=== PATIENT | female | born 1955 | race African-American/Black ===

== ENCOUNTER 2023-11-28 18:27 | Emergency (ER) | payer OTHER ==
[2023-11-28 18:36] VITALS: BP 124/69; PULSE 81; RESP 18; TEMP 98.6
== END 2023-11-28 22:00 | disposition home or self-care (01) ==
LOC: JER 18:27
DX: R20.2 Paresthesia of skin (principal); R20.0 Anesthesia of skin; M79.10 Myalgia, unspecified site; M25.552 Pain in left hip; M19.90 Unspecified osteoarthritis, unspecified site
CPT/HCPCS: 99283-25

== ENCOUNTER 2024-02-12 04:17 | Day surgery (SDC) | payer OTHER ==
[2024-02-12 09:35] VITALS: TEMP 98.8
[2024-02-12 09:57] VITALS: BP 100/60; PULSE 73; RESP 14
== END 2024-02-12 10:20 | disposition home or self-care (01) ==
LOC: JASU-ENDO 04:17
PROVIDERS: ATTEND Student in an Organized Health Care Education/Training Program
PROC: 0DB68ZX Excision of Stomach, Via Natural or Artificial Opening Endoscopic, Diagnostic (ICD-10-PCS; 2024-02-12)
PROC: 0DB28ZX Excision of Middle Esophagus, Via Natural or Artificial Opening Endoscopic, Diagnostic (ICD-10-PCS; 2024-02-12)
PROC: 0DB38ZX Excision of Lower Esophagus, Via Natural or Artificial Opening Endoscopic, Diagnostic (ICD-10-PCS; 2024-02-12)
PROC: 0DB98ZX Excision of Duodenum, Via Natural or Artificial Opening Endoscopic, Diagnostic (ICD-10-PCS; principal; 2024-02-12 08:45)
DX: K21.00 Gastro-esophageal reflux disease with esophagitis, without bleeding (principal); K29.50 Unspecified chronic gastritis without bleeding
CPT/HCPCS: 88305-TC; 88342-TC

== ENCOUNTER 2024-03-20 17:37 | Observation (INO) | payer OTHER ==
[2024-03-20 17:59] VITALS: BMI 21.3
[2024-03-20 18:49] LABS: EOS % 1.2 % (0-4.5); HEMATOCRIT 32.9 % (32.4-45.2); HEMOGLOBIN 10.8 GM/dL (10.7-15.3); LYMPH % 18.7 % (8-40); MCH 29.3 pg (25.7-33.7); MCHC 32.9 g/dl (32.0-36.0); MEAN CELL VOLUME 89.3 fl (80-96); MEAN PLT VOLUME 9.1 fl (7.5-11.1); MONO % 4.7 % (3.8-10.2); NEUT % 74.4 % (42.8-82.8); PLATELET COUNT 290 10^3/uL (134-434); RBC 3.69 M/mm3 (3.60-5.2); RDW 13.9 % (11.6-15.6); WHITE BLOOD COUNT 6.4 K/mm3 (4.0-10.0)
[2024-03-20 18:59] LABS: INR 1.04 (0.83-1.09); PROTHROMBIN TIME (PATIENT) 11.7 SEC (9.7-13.0)
[2024-03-20 19:02] LABS: ACTIVATED PTT 27.3 SECONDS (25.2-36.5)
[2024-03-20 19:38] LABS: POTASSIUM 4.2 mmol/L (3.5-5.1)
[2024-03-20 19:39] LABS: CALCIUM 9.3 mg/dL (8.5-10.1)
[2024-03-20 19:40] LABS: ALBUMIN 3.8 g/dl (3.4-5.0); BLOOD UREA NITROGEN 12.6 mg/dL (7-18)
[2024-03-20 19:43] LABS: CREATININE 0.7 mg/dL (0.55-1.3)
[2024-03-20 19:44] LABS: BILIRUBIN,TOTAL 0.4 mg/dL (0.2-1)
[2024-03-20 19:45] LABS: TOT PROT 7.7 g/dl (6.4-8.2)
[2024-03-21 01:06] LABS: POTASSIUM 3.7 mmol/L (3.5-5.1)
[2024-03-21 01:08] LABS: CALCIUM 9.3 mg/dL (8.5-10.1)
[2024-03-21 01:09] LABS: ALBUMIN 3.6 g/dl (3.4-5.0); BLOOD UREA NITROGEN 10.2 mg/dL (7-18); MAGNESIUM 1.9 mg/dL (1.8-2.4)
[2024-03-21 01:12] LABS: CREATININE 0.5 mg/dL (0.55-1.3)
[2024-03-21 01:13] LABS: BILIRUBIN,TOTAL 0.4 mg/dL (0.2-1)
[2024-03-21 01:14] LABS: TOT PROT 7.6 g/dl (6.4-8.2)
[2024-03-21 06:56] LABS: HEMATOCRIT 34.8 % (32.4-45.2); HEMOGLOBIN 11.4 GM/dL (10.7-15.3); MCH 29.5 pg (25.7-33.7); MCHC 32.8 g/dl (32.0-36.0); MEAN CELL VOLUME 90.1 fl (80-96); MEAN PLT VOLUME 9.8 fl (7.5-11.1); PLATELET COUNT 311 10^3/uL (134-434); RBC 3.86 M/mm3 (3.60-5.2); RDW 14.1 % (11.6-15.6); WHITE BLOOD COUNT 6.8 K/mm3 (4.0-10.0)
[2024-03-21] MEDS ORDERED: ENOXAPARIN NA (PORCINE) 40 MG/0.4 ML DISP.SYRIN SQ ONE (09:31)
[2024-03-21] MEDS: ENOXAPARIN NA (PORCINE) 40 MG/0.4 ML DISP.SYRIN SQ SCH (09:38)
[2024-03-21 09:43] VITALS: TEMP 98.1
[2024-03-21] MEDS ORDERED: ALBUTEROL SO4 HFA INHALER IH PRN (10:44)
[2024-03-21] MEDS ORDERED: ATENOLOL 50 MG TABLET (FP) ONE (11:15)
[2024-03-21] MEDS ORDERED: PANTOPRAZOLE 40 MG TABLET PO ONE (11:15)
[2024-03-21] MEDS ORDERED: NIFEdipine E.R. 30 MG TABLET PO ONE (11:16)
[2024-03-21] MEDS: ATENOLOL 50 MG TABLET (FP) PO SCH (11:19)
[2024-03-21] MEDS: NIFEdipine E.R. 30 MG TABLET PO SCH (11:19)
[2024-03-21] MEDS: PANTOPRAZOLE 40 MG TABLET PO SCH (11:19)
[2024-03-21] MEDS ORDERED: GABAPENTIN 400 MG CAPSULE ONE (14:57)
[2024-03-21] MEDS: GABAPENTIN 400 MG CAPSULE PO SCH (15:02)
[2024-03-21 17:28] VITALS: BP 135/71; PULSE 81; RESP 18
[2024-03-21] MEDS ORDERED: ATORVASTATIN CA 20 MG TABLET (FP) PO SCH (22:00)
== END 2024-03-21 18:00 | disposition home or self-care (01) ==
LOC: JER 17:37 → JERBED 21:26
PROVIDERS: ADMIT Internal Medicine; ATTEND Internal Medicine
PROC: 3E023GC Introduction of Other Therapeutic Substance into Muscle, Percutaneous Approach (ICD-10-PCS; principal; 2024-03-20)
DX: R00.0 Tachycardia, unspecified (principal); E78.5 Hyperlipidemia, unspecified; M79.7 Fibromyalgia; I50.30 Unspecified diastolic (congestive) heart failure; I09.89 Other specified rheumatic heart diseases; Z88.8 Allergy status to other drugs, medicaments and biological substances
CPT/HCPCS: 36415; 71045-TC-FY; 80053; 83735; 84443; 84484; 85025; 85027; 85610; 85730; 93005; 93010; 93306-TC; 96372; 99285-25; G0378

== ENCOUNTER 2024-04-03 16:15 | Emergency (ER) | payer OTHER ==
[2024-04-03 16:36] VITALS: BP 175/77; PULSE 80; RESP 18; TEMP 98.3; BMI 19.2
== END 2024-04-03 17:30 | disposition home or self-care (01) ==
LOC: JER 16:15
DX: I10 Essential (primary) hypertension (principal); R00.2 Palpitations
CPT/HCPCS: 93005; 93010; 99283-25

== ENCOUNTER 2024-06-07 14:32 | Emergency (ER) | payer OTHER ==
[2024-06-07 14:49] VITALS: BP 185/80; PULSE 83; RESP 16; TEMP 98.5; BMI 23.1
[2024-06-07 15:42] LABS: BASO % 1.1 % (0-2.0); EOS % 1.4 % (0-4.5); HEMATOCRIT 36.4 % (32.4-45.2); HEMOGLOBIN 11.8 GM/dL (10.7-15.3); LYMPH % 26.9 % (8-40); MCHC 32.4 g/dl (32.0-36.0); MEAN CELL VOLUME 89.3 fl (80-96); MEAN PLT VOLUME 9.3 fl (7.5-11.1); MONO % 7.1 % (3.8-10.2); NEUT % 63.5 % (42.8-82.8); PLATELET COUNT 310 10^3/uL (134-434); RBC 4.08 M/mm3 (3.60-5.2); RDW 14.7 % (11.6-15.6)
[2024-06-07 15:50] LABS: INR 0.97 (0.83-1.09); PROTHROMBIN TIME (PATIENT) 11.2 SEC (9.7-13.0)
[2024-06-07 15:53] LABS: ACTIVATED PTT 30.1 SECONDS (25.2-36.5)
[2024-06-07 15:59] LABS: POTASSIUM 3.9 mmol/L (3.5-5.1)
[2024-06-07 16:01] LABS: ALBUMIN 3.9 g/dl (3.4-5.0); CALCIUM 9.6 mg/dL (8.5-10.1)
[2024-06-07 16:02] LABS: BLOOD UREA NITROGEN 13.8 mg/dL (7-18); MAGNESIUM 1.9 mg/dL (1.8-2.4)
[2024-06-07 16:05] LABS: CREATININE 0.6 mg/dL (0.55-1.3)
[2024-06-07 16:06] LABS: BILIRUBIN,TOTAL 0.6 mg/dL (0.2-1); TOT PROT 8.2 g/dl (6.4-8.2)
[2024-06-07 16:10] LABS: N-TERMINAL BNP 126.8 pg/ml (5-125)
== END 2024-06-07 18:53 | disposition home or self-care (01) ==
LOC: JER 14:32
DX: I10 Essential (primary) hypertension (principal); R07.89 Other chest pain; R00.2 Palpitations; R61 Generalized hyperhidrosis
CPT/HCPCS: 36415; 71046-TC-FY; 80053; 83735; 83880; 84484; 85025; 85610; 85730; 93005; 93010; 99285-25

== ENCOUNTER 2024-09-27 16:30 | Emergency (ER) | payer OTHER ==
[2024-09-27 16:37] VITALS: TEMP 98.8; BMI 20.2
[2024-09-27] MEDS ORDERED: ONDANSETRON *ODT* 4 MG TABLET ONE (17:32)
[2024-09-27] MEDS ORDERED: MAG HYDROX/AL HYDROX/SIMETH 30 ML UNIT-DOSE CUP ONE (17:32)
[2024-09-27] MEDS: MAG HYDROX/AL HYDROX/SIMETH 30 ML UNIT-DOSE CUP PO ONE (17:35)
[2024-09-27] MEDS: ONDANSETRON *ODT* 4 MG TABLET SL ONE (17:40)
[2024-09-27 17:58] LABS: ABSOLUTE IMMATURE GRANULOCYTES 0.01 x10^3/uL (0.0-0.031); BASOPHILS # 0.07 x10^3/uL (0.01-0.08); EOSINOPHIL % 2.2 % (0.7-5.8); EOSINOPHILS # 0.09 x10^3/uL (0.04-0.36); HEMATOCRIT 29.6 % (34.1-44.9); MCHC 33.8 g/dl (32.2-35.5); MEAN CELL VOLUME 87.1 fl (79.4-94.8); MEAN PLT VOLUME 9.3 fl (9.4-12.3); MONOCYTE # 0.34 x10^3/uL (0.24-0.86); MONOCYTE % 8.3 % (4.7-12.5); PLATELET COUNT 328 x10^3/uL (182-369); RDW 12.8 % (12.4-16.4)
[2024-09-27 18:26] LABS: ALBUMIN 3.8 g/dl (3.4-5.0); BLOOD UREA NITROGEN 12.7 mg/dL (7-18); CALCIUM 9.9 mg/dL (8.5-10.1)
[2024-09-27 18:29] LABS: CREATININE 0.6 mg/dL (0.55-1.3)
[2024-09-27 18:31] LABS: BILIRUBIN,TOTAL 0.5 mg/dL (0.2-1); TOT PROT 7.6 g/dl (6.4-8.2)
[2024-09-27 19:31] VITALS: BP 134/63; PULSE 65; RESP 18
== END 2024-09-27 19:46 | disposition home or self-care (01) ==
LOC: JER 16:30
DX: R00.2 Palpitations (principal); R10.13 Epigastric pain; R11.0 Nausea; R07.9 Chest pain, unspecified
CPT/HCPCS: 36415; 80053; 84484; 85025; 93005; 93010; 99284-25; Q0162

== ENCOUNTER 2024-12-01 10:38 | Emergency (ER) | payer OTHER ==
[2024-12-01 10:47] VITALS: PULSE 78; RESP 19; TEMP 98.1; BMI 22.6
[2024-12-01 12:13] VITALS: BP 168/80
[2024-12-01 13:41] LABS: HIV INTERPRETATION NEGATIVE (NEGATIVE)
[2024-12-01 13:42] LABS: HCV DIAGNOSTIC IN-HOUSE W/RFLX NON-REACTIVE (NONREACTIVE)
== END 2024-12-01 12:44 | disposition home or self-care (01) ==
LOC: JERFT 10:38
DX: J01.90 Acute sinusitis, unspecified (principal); H92.03 Otalgia, bilateral; R09.81 Nasal congestion; R59.0 Localized enlarged lymph nodes
CPT/HCPCS: 36415; 86803; 87389; 87637-QW; 99283-25